=== PATIENT | female | born 1955 | race Caucasian/White ===

== ENCOUNTER 2017-04-14 16:00 | Observation (INO) | payer MEDICARE ==
[~2017-04-14] VITALS: Ht 172.7 cm; Wt 75.5 kg
--- NOTE | ~2017-04-14 | DS ---
PATIENT'S NAME: GINO NERI [facility] AGE: 61 Y [address] 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 Also has some neuropathic pain down the left leg which is consistent with the sciatic nerve and most consistent with S1. MRI was done of the low back which was unremarkable except for some mild degeneration. There was no stenosis of any type. Dynamic x-rays showed no instability.. On examination, markedly tender over the piriformis and a positive bowstring. CT scan showed the avascular necrosis of the left hip and there is fracture through the articular surface and some collapse. There is no early avascular necrosis of the right hip. The patient was counseled on the natural history of avascular necrosis. Opted for an injection in the left hip. There is also some sciatic nerve findings likely from the piriformis. So also did a sciatic nerve block at the piriformis with the injections, immediate complete relief of pain. Discharged to home. Activity as tolerates. MEDICATIONS: 1. Celebrex. 2. Levothyroxine. 3. Prinivil. 4. Effexor. 5. Ambien. 6. Klonopin. DIET: Regular diet. FOLLOWUP: Scheduled to follow up with Dr. Nj on May 01, 2017, at 11 o'clock a.m. Suddenly if the hip pain recurs, she would be indicated for a total hip replacement. If the symptoms are minimal, we will follow her over time. JHON NJ MD DPHood/brendenl PATIENT'S NAME: GINO NERI [facility] AGE: 61 Y [address]: [address] [address] LOCATION: G3 ADMIT DATE: 04/14/2017 Discharge Summary DISCHARGE DATE: 04/16/2017 FAMILY PHYSICIAN: Jake Murphy MD ATTENDING PHYSICIAN: Radha Sutton /[id number] d: 04/16/17 1342 t: 04/18/17 1846, DISCHARGE SUMMARY
--- NOTE | ~2017-04-14 | OR ---
PATIENT'S NAME: GINO NERI [facility] AGE: 61 Y [address] ROOM: [address] [address] LOCATION: [facility] ADMIT DATE: 04/14/2017 OR/Procedure Report DISCHARGE DATE: FAMILY PHYSICIAN: Jake Murphy MD ATTENDING PHYSICIAN: Radha Sutton SURGEON: Satish Nj MD DATA ENTRY OPERATOR: DATE OF PROCEDURE: 04/16/2017 DIAGNOSES: 1. Left hip avascular necrosis with collapse. 2. Left piriformis syndrome. PROCEDURE: 1. Intraarticular injection, left hip; x-ray guidance. 2. Left sciatic nerve block at piriformis. ANESTHESIA: Local. INDICATION: Seven months of pain, left hip and groin and also some neuropathic pain down the left leg. MRI of the low back is unremarkable. Tender over the piriformis. Does have avascular necrosis with collapse. To confirm symptoms can be relieved, intra-articular injection is indicated. We will also do a sciatic nerve block at the piriformis. Risks, benefits, and alternatives have been discussed. DESCRIPTION OF PROCEDURE: Ms. Neri was taken to the operating room and positioned prone on the Cosmo table. Left buttock was prepared with DuraPrep and draped sterilely. Fluoroscope was used to first identify the inferior portion of the SI joint. A 2 mL of 1% lidocaine was infused at the entry point. A 22-gauge spinal needle was advanced to contact with the inferior portion of the SI joint. The depth was noted. The needle was positioned in a new entry point, 2 cm lateral, 1 cm distal, and was advanced one additional centimeter. There was paresthesia down the left leg consistent with the sciatic nerve. The needle was slightly withdrawn. Aspiration was attempted. No return of blood. Slowly infused 6 mg of Celestone and 5 mL of 0.25% Marcaine. Then, under fluoroscopic control, a 22-gauge needle was advanced into the hip joint at the superior portion. Aspiration of clear synovial fluid. Infused 5 mL of 0.25% Marcaine and 6 mg of Celestone. Needle was removed. Band-Aid was placed. Procedure was done without complication. The patient was able to stand up in the operating room with immediate relief of pain, both the hip pain and the pain down the left leg. PATIENT'S NAME: GINO NERI [facility] AGE: 61 Y [address] ROOM: [facility] [place] [place] [address] LOCATION: [facility] ADMIT DATE: 04/14/2017 OR/Procedure Report DISCHARGE DATE: FAMILY PHYSICIAN: Jake Murphy MD ATTENDING PHYSICIAN: Radha Sutton SATISH NJ MD DPM/will /[id number] d: 04/16/17911 t: 04/18/17 1849, OPERATIVE SUMMARY
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
--- NOTE | ~2017-04-14 | DS ---
PATIENT'S NAME: GINO MERA [facility] AGE: 61 Y [address] ROOM: [address] [place], [place] [address] LOCATION: G3N ADMIT DATE: 04/14/2017 Discharge Summary DISCHARGE DATE: 04/16/2017 FAMILY PHYSICIAN: Jake Murphy MD ATTENDING PHYSICIAN: Radha Billings REASON FOR ADMISSION: Left hip pain. DETAILS: The patient was transferred from [facility] with complaints of left hip pain. She also had some back pain radiating down as far as the outside of the left foot. The patient was assessed initially in the Neurosurgery Clinic. She was found to have more hip than back problems. For this reason, an orthopedic consult was obtained and the patient was seen by Dr. Satish Marvin. COURSE IN THE HOSPITAL: The patient was evaluated by Dr. Marvin and was found to have avascular necrosis of the left hip. She underwent injection of her hip this morning, April 16, 2017. At this time, her hip pain is much improved and she is able to ambulate, although, she still has a limp on the left side. Her lumbar spine MRI did not show any significant spinal stenosis or nerve root compression and it is unlikely she will need any treatment for back pain. FOLLOWUP PLANS: The patient is supposed to see Dr. Marvin on May 01, 2017, at 11 a.m. Further management will depend on Dr. Marvin's findings at the time of consultation. In summary, 61-year-old female with left hip pain. She has had injection of her hip. She feels better. She is going home today. FINAL DIAGNOSIS: Avascular necrosis of left hip. RADHA BILLINGS MD CNO/modl /[id number] CC: Jake Murphy MD d: 04/16/17 2346 t: 04/22/17 1813, DISCHARGE SUMMARY
[2017-04-14] MEDS ORDERED: PRINIVIL (ZESTRI5 MG PO (17:52)
[2017-04-14] MEDS ORDERED: EFFEXOR XR75 MG PO (17:53)
[2017-04-14] MEDS ORDERED: BETAMETHAS45 GM/TUBE TOP (17:53)
[2017-04-14] MEDS ORDERED: CELEBREX200 MG PO (17:54)
[2017-04-14] MEDS ORDERED: LEVOTHROID (S137 MCG PO (17:55)
[2017-04-14] MEDS ORDERED: AMBIEN5 MG PO (17:55)
[2017-04-14] MEDS ORDERED: KLONOPIN0.5 MG PO (17:56)
[2017-04-16] MEDS ORDERED: TUMS REGULAR ST1 TAB PO (10:31)
== END 2017-04-16 13:45 | disposition disaster alternative care site (69) ==
LOC: G3N 16:48
PROVIDERS: ADMIT Neurological Surgery
PROC: 3E0U33Z Introduction of Anti-inflammatory into Joints, Percutaneous Approach (ICD-10-PCS; principal; 2017-04-16)
PROC: 3E0T33Z Introduction of Anti-inflammatory into Peripheral Nerves and Plexi, Percutaneous Approach (ICD-10-PCS; 2017-04-16)
PROC: 3E0T3BZ Introduction of Anesthetic Agent into Peripheral Nerves and Plexi, Percutaneous Approach (ICD-10-PCS; 2017-04-16)
DX: M87.852 Other osteonecrosis, left femur (principal); G57.02 Lesion of sciatic nerve, left lower limb; I10 Essential (primary) hypertension; E03.9 Hypothyroidism, unspecified; Z87.828 Personal history of other (healed) physical injury and trauma; Z98.890 Other specified postprocedural states
CPT/HCPCS: G0378; G0379; J0702; J1030; J1040